=== PATIENT | male | born 1945 ===

== ENCOUNTER 2025-01-30 17:14 | Inpatient (IN) | payer OTHER ==
[2025-01-30 16:30] VITALS: BP 152/69; PULSE 78; RESP 22; TEMP 98.1; O2SAT 93
[2025-01-30 16:43] VITALS: PULSE 76; RESP 20; O2SAT 97
[2025-01-30] MEDS ORDERED: DILT30TA4 GT (18:18)
[2025-01-30] MEDS ORDERED: MELA5TAB21 GT (18:18)
[2025-01-30] MEDS ORDERED: ASCO500 GT (18:18)
[2025-01-30] MEDS ORDERED: NITR0.4T50 SL (18:18)
[2025-01-30] MEDS ORDERED: BISA10SU11 PR (18:18)
[2025-01-30] MEDS ORDERED: GABA-1216 GT (18:18)
[2025-01-30] MEDS ORDERED: APIX5TAB GT (18:18)
[2025-01-30] MEDS ORDERED: ACET160L45 GT (18:18)
[2025-01-30] MEDS ORDERED: ATOR10TA GT (18:31)
[2025-01-30] MEDS ORDERED: FINA-27 GT (18:32)
[2025-01-30] MEDS ORDERED: HYDR200T38 GT (18:34)
[2025-01-30] MEDS ORDERED: METO50 GT (18:34)
[2025-01-30] MEDS ORDERED: NYST15PO3 TP (18:39)
[2025-01-30] MEDS ORDERED: TAMS0.4C94 GT (18:39)
[2025-01-30] MEDS ORDERED: METF-1211 GT (18:41)
[2025-01-30] MEDS ORDERED: [UNRECOGNIZED DRUG - CODE] SQ (18:44)
[2025-01-30] MEDS ORDERED: DEXTROSE 50%-WATER 25 GM/50 ML SYRINGE IVP PRN ×2 (18:45→20:45)
[2025-01-30] MEDS ORDERED: INSULIN LISPRO 100 UNITS/ML SQ PRN (18:45)
[2025-01-30] MEDS ORDERED: OXYC5 GT (18:49)
[2025-01-30 19:32] VITALS: PULSE 73; RESP 20; O2SAT 98
[2025-01-30 20:43] VITALS: BP 140/70; PULSE 85; RESP 20; TEMP 97.9; O2SAT 97
[2025-01-30] MEDS ORDERED: NYSTATIN 15 GM POWDER BOTTLE TP PRN (20:45)
[2025-01-30] MEDS ORDERED: NITROGLYCERIN 0.4 MG SUBLINGUAL TABLET #25 SL PRN (20:45)
[2025-01-30 21:47] LABS: PLATELET COUNT (AUTO) 230 K/uL (150-450); RED BLOOD CELL COUNT(AUTO) 4.73 MIL/uL (4.50-5.90); RED CELL DISTRIBUTION WIDTH 17.4 % (11.5-14.5); WHITE BLOOD COUNT (AUTO) 10.3 K/uL (4.5-11.0)
[2025-01-30 21:59] LABS: CALCIUM, TOTAL 8.5 mg/dL (8.8-10.5); CREATININE 0.61 mg/dL (0.60-1.30); GLOMERULAR FILTR. RATE CALC > 60 mL/min (>60); GLUCOSE,RANDOM 160 mg/dL (70-110); SODIUM SERUM 136 mmol/L (136-145); UREA NITROGEN, BLOOD 11 mg/dL (7-18)
[2025-01-30 22:03] LABS: ASPARTATE AMINOTRANSFERASE 24 U/L (15-37); TOTAL PROTEIN, SERUM 6.6 g/dL (6.4-8.2)
[2025-01-30] MEDS ORDERED: SODIUM CHLORIDE 0.9% 250 ML IV ONE (22:09)
[2025-01-30] MEDS: ASCORBIC ACID 500 MG TABLET GT SCH (22:27)
[2025-01-30] MEDS: APIXABAN 5 MG TABLET GT SCH (22:27)
[2025-01-30] MEDS: GABAPENTIN 100 MG CAPSULE GT SCH (22:27)
[2025-01-30] MEDS: HYDROXYCHLOROQUINE SULFATE 200 MG TABLET GT SCH (22:27)
[2025-01-30] MEDS: METOPROLOL TARTRATE 50 MG TABLET GT SCH (22:27)
[2025-01-30] MEDS: ZOLPIDEM TARTRATE 5 MG TABLET GT PRN (22:28)
[2025-01-30] MEDS: AMPICILLIN SODIUM/SULBACTAM NA 3 GM in SODIUM CHLORIDE 0.9% 100 ML IV SCH (22:32)
[2025-01-31] VITALS (8 sets, daily range): BP systolic 119–144; BP diastolic 52–67; PULSE 67–83; RESP 16–20; TEMP 98.6–99.1; O2SAT 94–99
[2025-01-31] MEDS: INSULIN LISPRO 100 UNITS/ML SQ PRN (00:41)
[2025-01-31 06:27] LABS: PLATELET COUNT (AUTO) 217 K/uL (150-450); RED BLOOD CELL COUNT(AUTO) 4.45 MIL/uL (4.50-5.90); RED CELL DISTRIBUTION WIDTH 17.6 % (11.5-14.5); WHITE BLOOD COUNT (AUTO) 10.1 K/uL (4.5-11.0)
[2025-01-31 06:49] LABS: CREATININE 0.75 mg/dL (0.60-1.30); GLOMERULAR FILTR. RATE CALC > 60 mL/min (>60); GLUCOSE,RANDOM 237 mg/dL (70-110); SODIUM SERUM 137 mmol/L (136-145); UREA NITROGEN, BLOOD 13 mg/dL (7-18)
[2025-01-31 06:53] LABS: CALCIUM, TOTAL 8.2 mg/dL (8.8-10.5)
[2025-01-31 09:06] LABS: GLUCOMETER DEV NAME(LOC) 5S.1E; GLUCOSE,POINT OF CARE 158 MG/DL (70-110)
[2025-01-31 09:06] LABS: GLUCOMETER DEV NAME(LOC) 5S.1E; GLUCOSE,POINT OF CARE 245 MG/DL (70-110)
[2025-01-31] MEDS: FINASTERIDE 5 MG TABLET PO SCH (09:53)
[2025-01-31] MEDS: TAMSULOSIN HCL 0.4 MG CAPSULE GT SCH (09:54)
[2025-01-31] MEDS: ATORVASTATIN CALCIUM 10 MG TABLET GT SCH (09:55)
[2025-01-31 15:30] LABS: GLUCOMETER DEV NAME(LOC) 5N.1D; GLUCOSE,POINT OF CARE 188 MG/DL (70-110)
[2025-01-31 15:30] LABS: GLUCOMETER DEV NAME(LOC) 5S.1E; GLUCOSE,POINT OF CARE 192 MG/DL (70-110)
[2025-01-31 18:55] LABS: GLUCOMETER DEV NAME(LOC) 5N.1D; GLUCOSE,POINT OF CARE 190 MG/DL (70-110)
[2025-01-31] MEDS: APIXABAN 5 MG TABLET GT SCH (20:52)
[2025-01-31 22:01] LABS: GLUCOMETER DEV NAME(LOC) 5S.1E; GLUCOSE,POINT OF CARE 181 MG/DL (70-110)
[2025-02-01] VITALS (7 sets, daily range): BP systolic 129–154; BP diastolic 53–61; PULSE 68–78; RESP 18–20; TEMP 97.7–99; O2SAT 93–95
[2025-02-01 06:30] LABS: GLUCOMETER DEV NAME(LOC) 5S.1E; GLUCOSE,POINT OF CARE 164 MG/DL (70-110)
[2025-02-01 12:20] LABS: GLUCOMETER DEV NAME(LOC) 5S.1E; GLUCOSE,POINT OF CARE 135 MG/DL (70-110)
[2025-02-01] MEDS ORDERED: SODIUM CHLORIDE 0.9% 250 ML IV ONE (15:32)
[2025-02-01 18:01] LABS: GLUCOMETER DEV NAME(LOC) 5S.1E; GLUCOSE,POINT OF CARE 134 MG/DL (70-110)
[2025-02-02 02:25] LABS: GLUCOMETER DEV NAME(LOC) 5N.1D; GLUCOSE,POINT OF CARE 176 MG/DL (70-110)
[2025-02-02] MEDS: ACETAMINOPHEN 650 MG/20.3 ML SOLUTION UDCUP GT PRN (02:43)
[2025-02-02 03:19] VITALS: BP 137/62; PULSE 92; RESP 20; TEMP 98.2; O2SAT 92
[2025-02-02 06:28] LABS: PLATELET COUNT (AUTO) 224 K/uL (150-450); RED BLOOD CELL COUNT(AUTO) 4.66 MIL/uL (4.50-5.90); RED CELL DISTRIBUTION WIDTH 17.3 % (11.5-14.5); WHITE BLOOD COUNT (AUTO) 9.5 K/uL (4.5-11.0)
[2025-02-02 06:56] LABS: CALCIUM, TOTAL 8.5 mg/dL (8.8-10.5); CREATININE 0.75 mg/dL (0.60-1.30); GLOMERULAR FILTR. RATE CALC > 60 mL/min (>60); GLUCOSE,RANDOM 152 mg/dL (70-110); SODIUM SERUM 135 mmol/L (136-145); UREA NITROGEN, BLOOD 9 mg/dL (7-18)
[2025-02-02 07:21] VITALS: BP 125/59; PULSE 69; RESP 18; TEMP 98; O2SAT 94
[2025-02-02 12:10] VITALS: BP 133/60; PULSE 72; RESP 17; TEMP 98.3; O2SAT 93
[2025-02-02] MEDS: MAGNESIUM SULFATE 2 GM/WATER 50 ML IV ONE (14:03)
[2025-02-02] MEDS: VALPROIC ACID 250 MG/5 ML SOLUTION UDCUP PO SCH (15:58)
[2025-02-02 16:21] VITALS: BP 142/61; PULSE 70; RESP 19; TEMP 98.4; O2SAT 93
[2025-02-02 19:48] VITALS: BP 146/62; PULSE 72; RESP 19; TEMP 98.4; O2SAT 94
[2025-02-02 21:40] LABS: GLUCOMETER DEV NAME(LOC) 5S.1E; GLUCOSE,POINT OF CARE 184 MG/DL (70-110)
[2025-02-02 21:40] LABS: GLUCOMETER DEV NAME(LOC) 5S.1E; GLUCOSE,POINT OF CARE 143 MG/DL (70-110)
[2025-02-02 21:41] LABS: GLUCOMETER DEV NAME(LOC) 5S.1E; GLUCOSE,POINT OF CARE 164 MG/DL (70-110)
[2025-02-02 21:41] LABS: GLUCOMETER DEV NAME(LOC) 5S.1E; GLUCOSE,POINT OF CARE 161 MG/DL (70-110)
[2025-02-03] VITALS (7 sets, daily range): BP systolic 131–148; BP diastolic 57–69; PULSE 65–83; RESP 17–19; TEMP 98.1–99; O2SAT 94–95
[2025-02-03 07:56] LABS: GLUCOMETER DEV NAME(LOC) 6N.1C; GLUCOSE,POINT OF CARE 159 MG/DL (70-110)
[2025-02-03] MEDS: FLUoxetine HCL 20 MG/5 ML SOLUTION UDCUP PO SCH (09:26)
[2025-02-03 13:20] LABS: GLUCOMETER DEV NAME(LOC) 6N.1C; GLUCOSE,POINT OF CARE 195 MG/DL (70-110)
[2025-02-03 18:40] LABS: GLUCOMETER DEV NAME(LOC) 6N.2C; GLUCOSE,POINT OF CARE 209 MG/DL (70-110)
[2025-02-04 00:35] LABS: GLUCOMETER DEV NAME(LOC) 4E.2; GLUCOSE,POINT OF CARE 202 MG/DL (70-110)
[2025-02-04 04:30] VITALS: BP 152/65; PULSE 73; RESP 18; TEMP 98.2; O2SAT 95
[2025-02-04 06:11] LABS: GLUCOMETER DEV NAME(LOC) 4E.2; GLUCOSE,POINT OF CARE 163 MG/DL (70-110)
[2025-02-04 08:27] VITALS: BP 138/65; PULSE 82; RESP 18; TEMP 97.9; O2SAT 94
[2025-02-04 16:00] VITALS: BP 144/64; PULSE 76; RESP 19; TEMP 98.1; O2SAT 97
[2025-02-04 20:00] VITALS: BP 145/59; PULSE 79; RESP 20; TEMP 97.7; O2SAT 100
[2025-02-05 00:55] LABS: GLUCOMETER DEV NAME(LOC) 4E.2; GLUCOSE,POINT OF CARE 179 MG/DL (70-110)
[2025-02-05 04:00] VITALS: BP 139/59; PULSE 79; RESP 20; TEMP 98.1; O2SAT 98
[2025-02-05 07:06] LABS: GLUCOMETER DEV NAME(LOC) 4E.2; GLUCOSE,POINT OF CARE 165 MG/DL (70-110)
[2025-02-05 07:20] VITALS: BP 156/58; PULSE 78; RESP 20; TEMP 98.1; O2SAT 98
[2025-02-05 16:00] VITALS: BP 143/55; PULSE 75; RESP 20; TEMP 97.7; O2SAT 96
[2025-02-05 20:00] VITALS: BP 152/65; PULSE 78; PULSE 81; RESP 18; RESP 20; TEMP 98.1; O2SAT 97; O2SAT 98; O2SAT 99
[2025-02-05 20:41] LABS: GLUCOMETER DEV NAME(LOC) 4E.2; GLUCOSE,POINT OF CARE 172 MG/DL (70-110)
[2025-02-05 21:06] LABS: GLUCOMETER DEV NAME(LOC) 4S.2; GLUCOSE,POINT OF CARE 181 MG/DL (70-110)
[2025-02-05 22:35] LABS: GLUCOMETER DEV NAME(LOC) 4S.2; GLUCOSE,POINT OF CARE 137 MG/DL (70-110)
[2025-02-05 23:50] LABS: GLUCOMETER DEV NAME(LOC) 4S.2; GLUCOSE,POINT OF CARE 154 MG/DL (70-110)
[2025-02-06 01:00] VITALS: BP 136/60; PULSE 83; RESP 19; O2SAT 98
[2025-02-06 04:00] VITALS: BP 141/59; PULSE 78; RESP 20; TEMP 97.7; O2SAT 97
[2025-02-06 05:19] LABS: APPEARANCE,URINE HAZY (CLEAR); GLUCOSE, URINE (UA) NEGATIVE (NEGATIVE); LEUKOCYTE ESTERASE ,URINE LARGE (NEGATIVE); NITRATE,URINE NEGATIVE (NEGATIVE); OCCULT BLOOD,URINE NEGATIVE (NEGATIVE); SPECIFIC GRAVITIY, URINE 1.022 (1.003-1.030)
[2025-02-06 06:25] LABS: GLUCOMETER DEV NAME(LOC) 4S.2; GLUCOSE,POINT OF CARE 198 MG/DL (70-110)
[2025-02-06 06:46] LABS: YEAST,URINE Many /HPF (None Seen)
[2025-02-06 07:45] VITALS: PULSE 83; RESP 20; O2SAT 96
[2025-02-06 08:00] VITALS: BP 148/64; PULSE 88; RESP 18; TEMP 98; O2SAT 98
[2025-02-06 12:21] LABS: GLUCOMETER DEV NAME(LOC) 4S.2; GLUCOSE,POINT OF CARE 205 MG/DL (70-110)
[2025-02-06 16:45] VITALS: BP 142/68; PULSE 82; RESP 18; TEMP 98; O2SAT 99
[2025-02-06 17:41] LABS: GLUCOMETER DEV NAME(LOC) 4S.2; GLUCOSE,POINT OF CARE 199 MG/DL (70-110)
[2025-02-06 19:55] VITALS: BP 156/60; PULSE 83; RESP 18; TEMP 98.3; O2SAT 98
[2025-02-07 04:45] VITALS: BP 144/60; PULSE 76; RESP 18; TEMP 98.1; O2SAT 95
[2025-02-07 07:00] VITALS: BP 132/61; PULSE 79; RESP 20; TEMP 97.7; O2SAT 95
[2025-02-07] MEDS: BISACODYL 10 MG RECTAL RECTAL SUPPOSITORY PR PRN (08:53)
[2025-02-07] MEDS: FLUoxetine HCL 20 MG/5 ML SOLUTION UDCUP PO SCH (09:20)
[2025-02-07 10:31] LABS: GLUCOMETER DEV NAME(LOC) 4S.2; GLUCOSE,POINT OF CARE 162 MG/DL (70-110)
[2025-02-07 10:31] LABS: GLUCOMETER DEV NAME(LOC) 4S.2; GLUCOSE,POINT OF CARE 174 MG/DL (70-110)
[2025-02-07 10:31] LABS: GLUCOMETER DEV NAME(LOC) 4S.2; GLUCOSE,POINT OF CARE 164 MG/DL (70-110)
[2025-02-07 11:50] LABS: GLUCOMETER DEV NAME(LOC) 4S.2; GLUCOSE,POINT OF CARE 164 MG/DL (70-110)
[2025-02-07 15:00] VITALS: BP 107/87; PULSE 74; RESP 18; TEMP 97.7; O2SAT 95
[2025-02-07 19:32] VITALS: BP 135/64; PULSE 88; RESP 18; TEMP 98.1; O2SAT 98
[2025-02-07 22:06] LABS: GLUCOMETER DEV NAME(LOC) 4E.2; GLUCOSE,POINT OF CARE 167 MG/DL (70-110)
[2025-02-08 03:30] VITALS: BP 110/76; PULSE 80; RESP 18; TEMP 98.1; O2SAT 97
[2025-02-08 07:15] LABS: GLUCOMETER DEV NAME(LOC) 4E.2; GLUCOSE,POINT OF CARE 172 MG/DL (70-110)
[2025-02-08 08:02] VITALS: BP 151/59; PULSE 80; RESP 18; TEMP 98.1; O2SAT 100
[2025-02-08] MEDS: FLUoxetine HCL 20 MG/5 ML SOLUTION UDCUP PEG SCH (08:42)
[2025-02-08 14:50] LABS: GLUCOMETER DEV NAME(LOC) 4S.2; GLUCOSE,POINT OF CARE 166 MG/DL (70-110)
[2025-02-08 14:50] LABS: GLUCOMETER DEV NAME(LOC) 4S.2; GLUCOSE,POINT OF CARE 173 MG/DL (70-110)
[2025-02-08 16:20] VITALS: BP 141/67; PULSE 76; RESP 18; TEMP 98.1; O2SAT 98
[2025-02-08 18:25] LABS: GLUCOMETER DEV NAME(LOC) 4S.2; GLUCOSE,POINT OF CARE 176 MG/DL (70-110)
[2025-02-08 20:00] VITALS: BP 127/57; PULSE 82; RESP 18; TEMP 98.1; O2SAT 97
[2025-02-09 04:00] VITALS: BP 136/56; PULSE 78; RESP 18; TEMP 97.9; O2SAT 96
[2025-02-09 06:25] LABS: GLUCOMETER DEV NAME(LOC) 4S.2; GLUCOSE,POINT OF CARE 183 MG/DL (70-110)
[2025-02-09 06:25] LABS: GLUCOMETER DEV NAME(LOC) 4S.2; GLUCOSE,POINT OF CARE 167 MG/DL (70-110)
[2025-02-09 08:47] VITALS: BP 137/64; PULSE 89; RESP 19; TEMP 96.8; O2SAT 96
[2025-02-09 10:00] VITALS: PULSE 77; RESP 16; O2SAT 99
[2025-02-09 13:51] LABS: GLUCOMETER DEV NAME(LOC) 4S.2; GLUCOSE,POINT OF CARE 208 MG/DL (70-110)
[2025-02-09 17:05] VITALS: BP 140/64; PULSE 79; RESP 18; TEMP 97.7; O2SAT 97
[2025-02-09 19:36] VITALS: BP 125/51; PULSE 83; RESP 18; TEMP 98.6; O2SAT 96
[2025-02-09 21:32] VITALS: PULSE 82; RESP 16; O2SAT 98
[2025-02-10 04:26] VITALS: BP 124/54; PULSE 85; RESP 18; TEMP 98.6; O2SAT 95
[2025-02-10 04:45] LABS: GLUCOMETER DEV NAME(LOC) 4S.2; GLUCOSE,POINT OF CARE 168 MG/DL (70-110)
[2025-02-10 06:10] LABS: GLUCOMETER DEV NAME(LOC) 4E.2; GLUCOSE,POINT OF CARE 165 MG/DL (70-110)
[2025-02-10 08:10] VITALS: BP 126/56; PULSE 80; RESP 19; TEMP 97.7; O2SAT 96
[2025-02-10 08:48] VITALS: PULSE 81; RESP 16; O2SAT 98
[2025-02-10 15:46] VITALS: BP 144/64; PULSE 75; RESP 18; TEMP 97.9; O2SAT 94
[2025-02-10 20:00] VITALS: BP 136/55; PULSE 79; RESP 18; TEMP 98.4; O2SAT 98
[2025-02-11 00:36] LABS: GLUCOMETER DEV NAME(LOC) 4S.2; GLUCOSE,POINT OF CARE 170 MG/DL (70-110)
[2025-02-11 00:36] LABS: GLUCOMETER DEV NAME(LOC) 4S.2; GLUCOSE,POINT OF CARE 178 MG/DL (70-110)
[2025-02-11] MEDS: DEXTROSE 5%-0.45% SODIUM CHL 1,000 ML IV SCH (03:10)
[2025-02-11 04:00] VITALS: BP 135/52; PULSE 76; RESP 18; TEMP 97.9; O2SAT 98
[2025-02-11 06:06] LABS: GLUCOMETER DEV NAME(LOC) 4E.2; GLUCOSE,POINT OF CARE 171 MG/DL (70-110)
[2025-02-11 08:13] VITALS: BP 115/56; PULSE 78; RESP 18; TEMP 98.1; O2SAT 96
[2025-02-11 13:40] LABS: GLUCOMETER DEV NAME(LOC) 4S.2; GLUCOSE,POINT OF CARE 171 MG/DL (70-110)
[2025-02-11 18:01] LABS: GLUCOMETER DEV NAME(LOC) 4S.2; GLUCOSE,POINT OF CARE 188 MG/DL (70-110)
[2025-02-11 20:00] VITALS: BP 144/54; PULSE 87; RESP 18; TEMP 97.9; O2SAT 96
[2025-02-12 04:00] VITALS: BP 132/51; PULSE 60; RESP 18; TEMP 98.4; O2SAT 98
[2025-02-12 05:11] LABS: GLUCOMETER DEV NAME(LOC) 4S.2; GLUCOSE,POINT OF CARE 184 MG/DL (70-110)
[2025-02-12 07:26] LABS: PLATELET COUNT (AUTO) 244 K/uL (150-450); RED BLOOD CELL COUNT(AUTO) 5.00 MIL/uL (4.50-5.90); RED CELL DISTRIBUTION WIDTH 17.2 % (11.5-14.5); WHITE BLOOD COUNT (AUTO) 9.6 K/uL (4.5-11.0)
[2025-02-12 07:29] LABS: CALCIUM, TOTAL 8.5 mg/dL (8.8-10.5); CREATININE 0.74 mg/dL (0.60-1.30); GLOMERULAR FILTR. RATE CALC > 60 mL/min (>60); GLUCOSE,RANDOM 184 mg/dL (70-110); SODIUM SERUM 126 mmol/L (136-145); UREA NITROGEN, BLOOD 10 mg/dL (7-18)
[2025-02-12 08:00] VITALS: BP 119/60; PULSE 89; RESP 19; TEMP 98.1; O2SAT 95
[2025-02-12 08:31] LABS: GLUCOMETER DEV NAME(LOC) 4S.2; GLUCOSE,POINT OF CARE 180 MG/DL (70-110)
[2025-02-12 16:00] VITALS: BP 137/52; PULSE 82; RESP 19; TEMP 97.7; O2SAT 95
[2025-02-12] MEDS: LIDOCAINE 5% TRANSDERMAL PATCH TD SCH (16:45)
[2025-02-12 18:16] LABS: GLUCOMETER DEV NAME(LOC) 4E.2; GLUCOSE,POINT OF CARE 204 MG/DL (70-110)
[2025-02-12 19:33] VITALS: BP 148/64; PULSE 97; RESP 19; TEMP 97.9; O2SAT 96
[2025-02-12] MEDS: -LIDODERM PATCH NOTE- MISC SCH (21:00)
[2025-02-12 22:56] VITALS: PULSE 80; RESP 16; O2SAT 97
[2025-02-13] VITALS (7 sets, daily range): BP systolic 127–151; BP diastolic 51–86; PULSE 86–113; RESP 16–20; TEMP 98.4–98.8; O2SAT 94–96
[2025-02-13 05:35] LABS: GLUCOMETER DEV NAME(LOC) 4S.2; GLUCOSE,POINT OF CARE 217 MG/DL (70-110)
[2025-02-13 06:11] LABS: GLUCOMETER DEV NAME(LOC) 4S.2; GLUCOSE,POINT OF CARE 219 MG/DL (70-110)
[2025-02-13] MEDS: FLUoxetine HCL 20 MG/5 ML SOLUTION UDCUP PEG SCH (08:29)
[2025-02-13] MEDS ORDERED: LIDOCAINE/PF 1% 30 ML VIAL ONE (10:29)
[2025-02-13] MEDS ORDERED: IOHEXOL 300 MG/ML 50 ML VIAL ONE (10:30)
[2025-02-13] MEDS: LIDOCAINE 1% 30 ML/SOD BICARB 8.4% 4 ML SQ ONE (11:12)
[2025-02-13] MEDS: IOHEXOL 300 MG/ML 50 ML VIAL IVP ONE (11:12)
[2025-02-13 11:50] LABS: GLUCOMETER DEV NAME(LOC) 4S.2; GLUCOSE,POINT OF CARE 224 MG/DL (70-110)
[2025-02-13 17:26] LABS: GLUCOMETER DEV NAME(LOC) 4S.2; GLUCOSE,POINT OF CARE 241 MG/DL (70-110)
[2025-02-14] VITALS (7 sets, daily range): BP systolic 100–135; BP diastolic 57–77; PULSE 78–91; RESP 18–20; TEMP 97.3–99; O2SAT 93–98
[2025-02-14] MEDS: OxyCODONE HCL 5 MG IR TABLET GT PRN (00:02)
[2025-02-14 00:10] LABS: GLUCOMETER DEV NAME(LOC) 4S.2; GLUCOSE,POINT OF CARE 209 MG/DL (70-110)
[2025-02-14 07:16] LABS: GLUCOMETER DEV NAME(LOC) 4E.2; GLUCOSE,POINT OF CARE 247 MG/DL (70-110)
[2025-02-14 17:10] LABS: GLUCOMETER DEV NAME(LOC) 4E.2; GLUCOSE,POINT OF CARE 135 MG/DL (70-110)
[2025-02-15] MEDS: MELATONIN 5 MG TABLET GT PRN (02:30)
[2025-02-15 05:00] VITALS: BP 135/64; PULSE 89; RESP 18; TEMP 98.1; O2SAT 96
[2025-02-15 05:35] LABS: GLUCOMETER DEV NAME(LOC) 4E.2; GLUCOSE,POINT OF CARE 202 MG/DL (70-110)
[2025-02-15 08:16] VITALS: BP 132/64; PULSE 87; RESP 18; TEMP 98; O2SAT 98
[2025-02-15 10:11] LABS: GLUCOMETER DEV NAME(LOC) 4E.2; GLUCOSE,POINT OF CARE 202 MG/DL (70-110)
[2025-02-15 11:36] LABS: GLUCOMETER DEV NAME(LOC) 4S.2; GLUCOSE,POINT OF CARE 174 MG/DL (70-110)
[2025-02-15 16:32] VITALS: BP 126/54; PULSE 80; RESP 18; TEMP 98; O2SAT 96
[2025-02-15] MEDS: RINGERS SOLUTION,LACTATED 1,000 ML IV SCH (16:36)
[2025-02-15] MEDS ORDERED: FLUO20SO24 PO (18:11)
[2025-02-15] MEDS ORDERED: GLIP5TAB16 PO (18:11)
[2025-02-15] MEDS ORDERED: VALP250S23 PO (18:12)
[2025-02-15] MEDS ORDERED: LISI-894 PO (18:13)
[2025-02-15] MEDS ORDERED: ZOLP-280 PO (18:13)
[2025-02-15] MEDS ORDERED: INSU100V SQ (18:15)
[2025-02-15] MEDS ORDERED: DEXT50DI6 IV (18:16)
[2025-02-15] MEDS ORDERED: LR1000 IV (18:19)
[2025-02-15 20:00] VITALS: BP 132/54; PULSE 80; RESP 17; TEMP 98.2; O2SAT 97
[2025-02-15 23:06] LABS: GLUCOMETER DEV NAME(LOC) 4S.2; GLUCOSE,POINT OF CARE 180 MG/DL (70-110)
[2025-02-16 04:00] VITALS: BP 131/61; PULSE 85; RESP 18; TEMP 98.4; O2SAT 96
[2025-02-16 05:56] LABS: GLUCOMETER DEV NAME(LOC) 4S.2; GLUCOSE,POINT OF CARE 170 MG/DL (70-110)
[2025-02-16 08:29] VITALS: BP 138/57; PULSE 76; RESP 17; TEMP 98.1; O2SAT 97
[2025-02-16 11:55] LABS: GLUCOMETER DEV NAME(LOC) 4E.2; GLUCOSE,POINT OF CARE 205 MG/DL (70-110)
[2025-02-16 16:10] VITALS: BP 132/68; PULSE 81; RESP 17; TEMP 97.5; O2SAT 95
[2025-02-16 17:06] LABS: GLUCOMETER DEV NAME(LOC) 4S.2; GLUCOSE,POINT OF CARE 168 MG/DL (70-110)
[2025-02-16 17:46] LABS: GLUCOMETER DEV NAME(LOC) 4S.2; GLUCOSE,POINT OF CARE 155 MG/DL (70-110)
[2025-02-16 19:08] VITALS: BP 122/56; PULSE 81; RESP 18; TEMP 98.6; O2SAT 97
[2025-02-16 21:30] LABS: GLUCOMETER DEV NAME(LOC) 4S.2; GLUCOSE,POINT OF CARE 145 MG/DL (70-110)
[2025-02-17 06:20] LABS: GLUCOMETER DEV NAME(LOC) 4S.2; GLUCOSE,POINT OF CARE 131 MG/DL (70-110)
[2025-02-17 06:55] VITALS: BP 130/60; PULSE 75; RESP 18; TEMP 98.1; O2SAT 96
[2025-02-17 07:35] VITALS: PULSE 75; RESP 17; O2SAT 98
[2025-02-17 07:50] VITALS: BP 136/57; PULSE 81; RESP 18; TEMP 97.7; O2SAT 96
[2025-02-17 15:30] VITALS: BP 149/59; PULSE 80; RESP 16; TEMP 97.5; O2SAT 99
[2025-02-17] MEDS: 1: MAGNESIUM SULFATE 2 GM, MVI, ADULT NO.1 WITH VIT K 10 ML, THIAMINE 100 MG, FOLIC ACID IV SCH (17:43)
[2025-02-17 20:03] VITALS: BP 127/60; PULSE 75; RESP 18; TEMP 97.9; O2SAT 95
[2025-02-17 22:30] VITALS: PULSE 81; RESP 18; O2SAT 97
[2025-02-18 00:01] LABS: GLUCOMETER DEV NAME(LOC) 4E.2; GLUCOSE,POINT OF CARE 128 MG/DL (70-110)
[2025-02-18 04:02] VITALS: BP 134/63; PULSE 72; RESP 18; TEMP 98.2; O2SAT 97
[2025-02-18 06:05] LABS: GLUCOMETER DEV NAME(LOC) 4E.2; GLUCOSE,POINT OF CARE 124 MG/DL (70-110)
[2025-02-18 08:00] LABS: PLATELET COUNT (AUTO) 327 K/uL (150-450); RED BLOOD CELL COUNT(AUTO) 5.30 MIL/uL (4.50-5.90); RED CELL DISTRIBUTION WIDTH 16.5 % (11.5-14.5); WHITE BLOOD COUNT (AUTO) 10.1 K/uL (4.5-11.0)
[2025-02-18 08:02] LABS: CALCIUM, TOTAL 8.5 mg/dL (8.8-10.5); CREATININE 0.54 mg/dL (0.60-1.30); GLOMERULAR FILTR. RATE CALC > 60 mL/min (>60); GLUCOSE,RANDOM 116 mg/dL (70-110); SODIUM SERUM 132 mmol/L (136-145); UREA NITROGEN, BLOOD 10 mg/dL (7-18)
[2025-02-18 08:06] VITALS: BP 123/56; PULSE 74; RESP 18; TEMP 98.4; O2SAT 97
[2025-02-18 15:43] VITALS: BP 150/58; PULSE 76; RESP 18; TEMP 97.6; O2SAT 99
[2025-02-18 19:32] VITALS: BP 145/59; PULSE 70; RESP 18; TEMP 98.8; O2SAT 99
[2025-02-18 20:00] VITALS: PULSE 64; RESP 18; O2SAT 98
[2025-02-18 20:21] LABS: GLUCOMETER DEV NAME(LOC) 4S.2; GLUCOSE,POINT OF CARE 120 MG/DL (70-110)
[2025-02-18 20:21] LABS: GLUCOMETER DEV NAME(LOC) 4S.2; GLUCOSE,POINT OF CARE 114 MG/DL (70-110)
[2025-02-18 23:36] LABS: GLUCOMETER DEV NAME(LOC) 4S.2; GLUCOSE,POINT OF CARE 110 MG/DL (70-110)
[2025-02-19] VITALS (7 sets, daily range): BP systolic 126–167; BP diastolic 53–75; PULSE 64–83; RESP 18–20; TEMP 98.1–98.6; O2SAT 94–98
[2025-02-19] MEDS ORDERED: METOPROLOL TARTRATE 5 MG/5 ML VIAL IVP SCH
[2025-02-19 02:50] LABS: GLUCOMETER DEV NAME(LOC) 4S.2; GLUCOSE,POINT OF CARE 99 MG/DL (70-110)
[2025-02-19 06:35] LABS: GLUCOMETER DEV NAME(LOC) 4S.2; GLUCOSE,POINT OF CARE 92 MG/DL (70-110)
[2025-02-19] MEDS ORDERED: IOHEXOL 300 MG/ML 50 ML VIAL ONE (08:41)
[2025-02-19] MEDS ORDERED: LIDOCAINE/PF 1% 30 ML VIAL ONE (08:42)
[2025-02-19] MEDS: IOHEXOL 300 MG/ML 50 ML VIAL IVP ONE (09:17)
[2025-02-19] MEDS: LIDOCAINE 1% 30 ML/SOD BICARB 8.4% 4 ML SQ ONE (09:17)
[2025-02-19 11:55] LABS: GLUCOMETER DEV NAME(LOC) 4S.2; GLUCOSE,POINT OF CARE 112 MG/DL (70-110)
[2025-02-19 21:36] LABS: GLUCOMETER DEV NAME(LOC) 4E.2; GLUCOSE,POINT OF CARE 131 MG/DL (70-110)
[2025-02-20] VITALS (7 sets, daily range): BP systolic 101–138; BP diastolic 61–73; PULSE 76–84; RESP 14–20; TEMP 98–98.3; O2SAT 95–98
[2025-02-20 05:40] LABS: GLUCOMETER DEV NAME(LOC) 4E.2; GLUCOSE,POINT OF CARE 163 MG/DL (70-110)
[2025-02-20 08:53] LABS: FRACTIONATED INSPIRED OXYGEN 30.0 % (21-100.0); SOURCE, BLOOD GAS ARTERIAL; TEMPERATURE, FAHRENHEIT, BG 96.8 FAHREN (96.0-98.6)
[2025-02-20 08:58] LABS: ABG BASE EXCESS 2.5 mmol/L (-2.0-3.0); ABG CARBOXYHEMOGLOBIN 1.4 % (0.5-1.5); ABG HCO3 26.8 mmol/L (21.0-28.0); ABG METHEMOGLOBIN 0.2 % (0.0-1.5); ABG OXYGEN CONTENT 18.7 mL/dL (15.0-23.0); ABG OXYGEN SATURATION 95.5 % (94.0-98.0); ABG OXYHEMOGLOBIN 94.0 % (94.0-98.0); ABG PCO2 35 mmHg (32.0-48.0); ABG PH 7.485 (7.350-7.450); ABG TOTAL HEMOGLOBIN 14.1 G/dL (13.5-17.5); PO2, ARTERIAL BG 70.2 mmHg (83.0-108.0)
[2025-02-20 09:02] LABS: ALLEN TEST, BLOOD GAS Y; SITE, BLOOD GAS RT RADIAL
[2025-02-20 09:03] LABS: FLOW, BLOOD GAS 6.00 L/min (0.00-15.00); O2 DEVICE,BLOOD GAS TRACH COLLAR (ROOM AIR)
[2025-02-20 09:26] LABS: GLUCOMETER DEV NAME(LOC) 4S.2; GLUCOSE,POINT OF CARE 119 MG/DL (70-110)
[2025-02-20] MEDS: METOPROLOL SUCCINATE 50 MG ER TABLET GT SCH (09:33)
[2025-02-20 14:21] LABS: GLUCOMETER DEV NAME(LOC) ICUN.7; GLUCOSE,POINT OF CARE 210 MG/DL (70-110)
[2025-02-20 18:21] LABS: GLUCOMETER DEV NAME(LOC) ICUN.7; GLUCOSE,POINT OF CARE 177 MG/DL (70-110)
[2025-02-20 23:01] LABS: GLUCOMETER DEV NAME(LOC) 5S.1E; GLUCOSE,POINT OF CARE 154 MG/DL (70-110)
[2025-02-21] VITALS (7 sets, daily range): BP systolic 95–132; BP diastolic 57–71; PULSE 71–101; RESP 18–19; TEMP 97.5–98.2; O2SAT 95–98
[2025-02-21 04:31] LABS: GLUCOMETER DEV NAME(LOC) 5S.2E; GLUCOSE,POINT OF CARE 174 MG/DL (70-110)
[2025-02-21 06:46] LABS: PLATELET COUNT (AUTO) 291 K/uL (150-450); RED BLOOD CELL COUNT(AUTO) 5.09 MIL/uL (4.50-5.90); RED CELL DISTRIBUTION WIDTH 16.9 % (11.5-14.5); WHITE BLOOD COUNT (AUTO) 10.6 K/uL (4.5-11.0)
[2025-02-21 06:57] LABS: CALCIUM, TOTAL 8.4 mg/dL (8.8-10.5); CREATININE 0.57 mg/dL (0.60-1.30); GLOMERULAR FILTR. RATE CALC > 60 mL/min (>60); GLUCOSE,RANDOM 157 mg/dL (70-110); SODIUM SERUM 131 mmol/L (136-145); UREA NITROGEN, BLOOD 10 mg/dL (7-18)
[2025-02-21 12:20] LABS: GLUCOMETER DEV NAME(LOC) 5S.1E; GLUCOSE,POINT OF CARE 132 MG/DL (70-110)
[2025-02-21] MEDS ORDERED: POTASSIUM CHLORIDE 20 MEQ ER TABLET PO PRN (14:45)
[2025-02-21] MEDS ORDERED: SODIUM CHLORIDE 0.9% 500 ML IV ONE (16:03)
[2025-02-21] MEDS: POTASSIUM CHL 10 MEQ/WATER 50 ML IV PRN (16:08)
[2025-02-21 21:01] LABS: GLUCOMETER DEV NAME(LOC) 5N.1D; GLUCOSE,POINT OF CARE 178 MG/DL (70-110)
[2025-02-21] MEDS: POTASSIUM CHL 20 MEQ/0.9% NS 500 ML IV ONE (21:19)
[2025-02-22 04:10] LABS: GLUCOMETER DEV NAME(LOC) 6N.2C; GLUCOSE,POINT OF CARE 191 MG/DL (70-110)
[2025-02-22 04:26] VITALS: BP 129/64; PULSE 87; RESP 18; TEMP 97.8; O2SAT 98
[2025-02-22 06:00] LABS: PLATELET COUNT (AUTO) 294 K/uL (150-450); RED BLOOD CELL COUNT(AUTO) 5.38 MIL/uL (4.50-5.90); RED CELL DISTRIBUTION WIDTH 16.9 % (11.5-14.5); WHITE BLOOD COUNT (AUTO) 9.7 K/uL (4.5-11.0)
[2025-02-22 06:15] LABS: CALCIUM, TOTAL 9.0 mg/dL (8.8-10.5); CREATININE 0.70 mg/dL (0.60-1.30); GLOMERULAR FILTR. RATE CALC > 60 mL/min (>60); GLUCOSE,RANDOM 155 mg/dL (70-110); SODIUM SERUM 133 mmol/L (136-145); UREA NITROGEN, BLOOD 8 mg/dL (7-18)
[2025-02-22 07:53] VITALS: BP 138/58; PULSE 86; RESP 18; TEMP 96.8; O2SAT 95
[2025-02-22 12:46] LABS: GLUCOMETER DEV NAME(LOC) 4S.2; GLUCOSE,POINT OF CARE 150 MG/DL (70-110)
[2025-02-22 15:48] VITALS: BP 154/74; PULSE 68; RESP 18; TEMP 97.3; O2SAT 94
[2025-02-22 17:30] LABS: GLUCOMETER DEV NAME(LOC) 4S.2; GLUCOSE,POINT OF CARE 160 MG/DL (70-110)
[2025-02-22 17:41] LABS: GLUCOMETER DEV NAME(LOC) 6N.2C; GLUCOSE,POINT OF CARE 157 MG/DL (70-110)
[2025-02-22] MEDS: DEXTROSE 5%-0.45% SODIUM CHL 1,000 ML IV SCH (17:43)
[2025-02-22 20:00] VITALS: BP 159/73; PULSE 94; RESP 18; TEMP 97.3; O2SAT 96
[2025-02-23 02:46] LABS: GLUCOMETER DEV NAME(LOC) 6N.2C; GLUCOSE,POINT OF CARE 180 MG/DL (70-110)
[2025-02-23 04:00] VITALS: BP 159/65; PULSE 91; RESP 18; TEMP 98.1; O2SAT 95
[2025-02-23 07:10] VITALS: BP 146/68; PULSE 96; RESP 20; TEMP 97.7; O2SAT 96
[2025-02-23] MEDS ORDERED: IOHEXOL 300 MG/ML 50 ML VIAL ONE (10:26)
[2025-02-23 10:51] VITALS: BP 155/78; PULSE 95
[2025-02-23] MEDS: IOHEXOL 300 MG/ML 50 ML VIAL IVP ONE (11:06)
[2025-02-23 11:27] VITALS: BP 145/71; PULSE 94
[2025-02-23 13:10] LABS: GLUCOMETER DEV NAME(LOC) 4S.2; GLUCOSE,POINT OF CARE 215 MG/DL (70-110)
[2025-02-23 19:57] VITALS: BP 135/73; PULSE 89; RESP 18; TEMP 98; O2SAT 96
[2025-02-24 04:28] VITALS: BP 107/80; PULSE 80; RESP 18; TEMP 97.7; O2SAT 95
[2025-02-24 07:51] LABS: GLUCOMETER DEV NAME(LOC) 6N.2C; GLUCOSE,POINT OF CARE 280 MG/DL (70-110)
[2025-02-24 07:51] LABS: GLUCOMETER DEV NAME(LOC) 6N.2C; GLUCOSE,POINT OF CARE 234 MG/DL (70-110)
[2025-02-24] MEDS ORDERED: SODIUM CHLORIDE 0.9% 250 ML IV ONE (09:07)
[2025-02-24 09:28] VITALS: BP 91/47; PULSE 97; RESP 18; TEMP 97.5; O2SAT 95
[2025-02-24 11:11] VITALS: BP 104/66
[2025-02-24] MEDS: FINASTERIDE 5 MG TABLET PO SCH (12:00)
[2025-02-24 12:36] LABS: GLUCOMETER DEV NAME(LOC) 6N.2C; GLUCOSE,POINT OF CARE 230 MG/DL (70-110)
[2025-02-24 15:24] VITALS: BP 102/71; PULSE 94; RESP 18; TEMP 97.7; O2SAT 96
[2025-02-24 17:11] LABS: GLUCOMETER DEV NAME(LOC) 4S.2; GLUCOSE,POINT OF CARE 191 MG/DL (70-110)
[2025-02-24 20:00] VITALS: BP 105/51; PULSE 96; RESP 18; TEMP 97.5; O2SAT 96
[2025-02-24 20:50] VITALS: BP 93/47; PULSE 93; RESP 20; TEMP 97.9; O2SAT 96
[2025-02-24 23:20] LABS: GLUCOMETER DEV NAME(LOC) 4S.2; GLUCOSE,POINT OF CARE 191 MG/DL (70-110)
[2025-02-25 02:24] VITALS: BP 95/50; PULSE 96; RESP 18; TEMP 97.5; O2SAT 100
[2025-02-25 04:43] VITALS: BP 105/54; PULSE 93; RESP 18; TEMP 97.7; O2SAT 96
[2025-02-25 06:11] LABS: GLUCOMETER DEV NAME(LOC) 6N.2C; GLUCOSE,POINT OF CARE 172 MG/DL (70-110)
[2025-02-25 08:18] VITALS: BP 108/57; PULSE 96; RESP 20; TEMP 98.2; O2SAT 93
[2025-02-25 16:20] VITALS: BP 101/55; PULSE 69; RESP 18; TEMP 97.9; O2SAT 92
[2025-02-25 18:05] LABS: GLUCOMETER DEV NAME(LOC) 6N.2C; GLUCOSE,POINT OF CARE 128 MG/DL (70-110)
[2025-02-25 20:23] VITALS: BP 110/57; PULSE 18; RESP 18; TEMP 97.9; O2SAT 95
[2025-02-26 00:01] LABS: GLUCOMETER DEV NAME(LOC) 6N.2C; GLUCOSE,POINT OF CARE 123 MG/DL (70-110)
[2025-02-26 04:05] VITALS: BP 124/41; PULSE 83; RESP 20; TEMP 97.5; O2SAT 95
[2025-02-26 05:55] LABS: GLUCOMETER DEV NAME(LOC) 6N.2C; GLUCOSE,POINT OF CARE 153 MG/DL (70-110)
[2025-02-26 08:38] VITALS: BP 91/74; PULSE 84; RESP 18; TEMP 97.9; O2SAT 95
[2025-02-26 11:52] LABS: APPEARANCE,URINE TURBID (CLEAR); GLUCOSE, URINE (UA) NEGATIVE (NEGATIVE); LEUKOCYTE ESTERASE ,URINE LARGE (NEGATIVE); NITRATE,URINE NEGATIVE (NEGATIVE); OCCULT BLOOD,URINE LARGE (NEGATIVE); SPECIFIC GRAVITIY, URINE 1.011 (1.003-1.030)
[2025-02-26 12:01] LABS: GLUCOMETER DEV NAME(LOC) 4S.2; GLUCOSE,POINT OF CARE 104 MG/DL (70-110)
[2025-02-26 15:00] VITALS: BP 139/68; PULSE 78; RESP 16; TEMP 97.5; O2SAT 96
== END 2025-02-26 17:00 | DRG 86 ==
LOC: 5N 17:16 → 6S 02-03 06:22 → 4E 02-03 18:28 → ICU 02-20 08:03 → 5S 02-20 19:15 → 6S 02-21 18:52
PROVIDERS: ADMIT Hospitalist; ATTEND Hospitalist
PROC: 0D20XUZ Change Feeding Device in Upper Intestinal Tract, External Approach (ICD-10-PCS; principal; 2025-02-13)
PROC: 0D20XUZ Change Feeding Device in Upper Intestinal Tract, External Approach (ICD-10-PCS; 2025-02-19)
PROC: 0D20XUZ Change Feeding Device in Upper Intestinal Tract, External Approach (ICD-10-PCS; 2025-02-23)
DX: S02.85XA Fracture of orbit, unspecified, initial encounter for closed fracture (principal); D62 Acute posthemorrhagic anemia; E46 Unspecified protein-calorie malnutrition; I42.9 Cardiomyopathy, unspecified; F33.2 Major depressive disorder, recurrent severe without psychotic features; J96.11 Chronic respiratory failure with hypoxia; L89.309 Pressure ulcer of unspecified buttock, unspecified stage; S02.40DA Maxillary fracture, left side, initial encounter for closed fracture; S02.609A Fracture of mandible, unspecified, initial encounter for closed fracture; S02.2XXA Fracture of nasal bones, initial encounter for closed fracture; S01.83XA Puncture wound without foreign body of other part of head, initial encounter; Z93.0 Tracheostomy status; E11.22 Type 2 diabetes mellitus with diabetic chronic kidney disease; E66.01 Morbid (severe) obesity due to excess calories; F39 Unspecified mood [affective] disorder; I12.9 Hypertensive chronic kidney disease with stage 1 through stage 4 chronic kidney disease, or unspecified chronic kidney disease; M06.9 Rheumatoid arthritis, unspecified; H46.9 Unspecified optic neuritis; N13.8 Other obstructive and reflux uropathy; S04.012A Injury of optic nerve, left eye, initial encounter; I48.0 Paroxysmal atrial fibrillation; I25.10 Atherosclerotic heart disease of native coronary artery without angina pectoris; E21.0 Primary hyperparathyroidism; E11.319 Type 2 diabetes mellitus with unspecified diabetic retinopathy without macular edema; N18.2 Chronic kidney disease, stage 2 (mild); N32.0 Bladder-neck obstruction; E11.65 Type 2 diabetes mellitus with hyperglycemia; E78.5 Hyperlipidemia, unspecified; I25.119 Atherosclerotic heart disease of native coronary artery with unspecified angina pectoris; N40.1 Benign prostatic hyperplasia with lower urinary tract symptoms; R13.10 Dysphagia, unspecified; I95.9 Hypotension, unspecified; I25.2 Old myocardial infarction; Z79.01 Long term (current) use of anticoagulants; Z79.84 Long term (current) use of oral hypoglycemic drugs; Z86.14 Personal history of Methicillin resistant Staphylococcus aureus infection; Z87.440 Personal history of urinary (tract) infections; Z87.442 Personal history of urinary calculi; Z88.2 Allergy status to sulfonamides; Z90.89 Acquired absence of other organs; Z98.61 Coronary angioplasty status; Z98.890 Other specified postprocedural states; Z79.899 Other long term (current) drug therapy; Y93.89 Activity, other specified; Y92.89 Other specified places as the place of occurrence of the external cause; Y99.8 Other external cause status; D11.9 Benign neoplasm of major salivary gland, unspecified
CPT/HCPCS: 36245; 49450; 71045; 76000; 80048; 80053; 80164; 81001; 82805; 82962; 83735; 85025; 87077; 87081; 87086; 94760; 97110; 97163; 97167; 97530; 97535; 99285; G0238; G0378; J0295; J3411; J3475; J3480; J3490; J7030; J7040; J7050; J7120; Q9967; 36415-L1; 36415-TC

== ENCOUNTER 2025-02-26 17:33 | Emergency (ER) | payer OTHER, MEDICAID ==
[~2025-02-26] VITALS: Ht 185.4 cm; Wt 113.6 kg
[~2025-02-26 17:33] MED LIST: ACET160L45 GT; APIX5TAB GT; ASCO500 GT; ATOR10TA GT; BISA10SU11 PR; DEXT50DI6 IV; DILT30TA4 GT; FINA-27 GT; FLUO20SO24 PO; GABA-1216 GT; GLIP5TAB16 PO; HYDR200T38 GT; INSU100V SQ; LISI-894 PO; LR1000 IV; MELA5TAB21 GT; METF-1211 GT; METO50 GT; NITR0.4T50 SL; NYST15PO3 TP; OXYC5 GT; TAMS0.4C94 GT; VALP250S23 PO; ZOLP-280 PO; [UNRECOGNIZED DRUG - CODE] SQ
[2025-02-26 18:19] VITALS: TEMP 99.4
[2025-02-26 21:27] VITALS: BP 154/58; PULSE 91; RESP 18; O2SAT 94
== END 2025-02-26 23:17 | disposition admitted as inpatient to this hospital (09) ==
LOC: EMS 17:33
DX: E11.9 Type 2 diabetes mellitus without complications (principal); R45.851 Suicidal ideations; I10 Essential (primary) hypertension; I25.10 Atherosclerotic heart disease of native coronary artery without angina pectoris; Z79.631 Long term (current) use of antimetabolite agent; Z88.2 Allergy status to sulfonamides; Z43.0 Encounter for attention to tracheostomy; Z79.899 Other long term (current) drug therapy
CPT/HCPCS: 99285; Z7502